=== PATIENT | female | born 1935 | race Caucasian/White ===

== ENCOUNTER 2016-12-10 05:56 | Emergency (ER) | payer OTHER, MEDICAID ==
[2016-12-10] MEDS ORDERED: NS 1,000 ML IV ONE (06:10)
[2016-12-10 06:22] LABS: % IMMATURE GRANULYOCYTES 0.6 % (0.0-1.1); ABSOLUTE IMMATURE GRANULOCYTES 0.05 10^3/uL (0.00-0.10); ADD DIFF? NO; ADD MORPH? NO; ADD SCAN? NO; ATYPICAL LYMPHOCYTE FLAG 0 (0-99); FRAGMENT RBC FLAG 0 (0-99); HEMATOCRIT 38.2 % (38.0-47.0); HEMOGLOBIN 12.8 g/dL (12.6-16.3); LEFT SHIFT FLG 0 (0-99); LIPEMIA HEMOLYSIS FLAG 80 (0-99); MEAN CELL HEMOGLOBIN 31.4 pg (27.9-34.1); MEAN CELL HEMOGLOBIN CONCENTR. 33.5 g/dL (32.4-36.7); MEAN CELL VOLUME 93.6 fL (81.5-99.8); MEAN PLATELET VOLUME 8.9 fL (8.7-11.7); PLATELET CLUMPS FLAG 0 (0-99); PLATELET COUNT 283 10^3/uL (150-400); RED BLOOD CELL COUNT 4.08 10^6/uL (4.18-5.33); RED CELL DISTRIBUTION WIDTH 12.5 % (11.5-15.2)
[2016-12-10] MEDS ORDERED: ONDANSETRON 4 MG/2 ML VIAL IVP ONE ×2 (06:29→08:57)
[2016-12-10] MEDS ORDERED: KETOROLAC 15 MG/1 ML SDV IVP ONE (06:29)
[2016-12-10 06:32] LABS: ALANINE AMINOTRANSFERASE 28 IU/L (9-52); ALKALINE PHOSPHATASE 85 IU/L (38-126); ANION GAP 11 mEq/L (8-16); ASPARTATE AMINOTRANSFERASE 21 IU/L (14-46); BILIRUBIN,TOTAL 1.6 mg/dL (0.1-1.4); BILIRUBIN-CONJUGATED 0.3 mg/dL (0.0-0.5); BILIRUBIN-UNCONJUGATED 1.3 mg/dL (0.0-1.1); CALCIUM 9.2 mg/dL (8.5-10.4); CARBON DIOXIDE 23 mEq/l (22-31); CHLORIDE 104 mEq/L (97-110); CREATININE 0.6 mg/dL (0.6-1.0); GLOMERULAR FILTRATION RATE > 60; GLUCOSE 134 mg/dL (70-100); POTASSIUM 3.9 mEq/L (3.5-5.2); SODIUM 138 mEq/L (134-144); TOTAL PROTEIN 7.1 g/dL (6.3-8.2)
--- NOTE | 2016-12-10 06:33 | EDPHY ---
H & P Stated Complaint: abdominal pain, nausea and vomiting, back pain Source: Patient, Family Exam Limitations: No limitations - Personal History Current Tetanus/Diphtheria Vaccine: Yes Current Tetanus Diphtheria and Acellular Pertussis (TDAP): Yes Tetanus Vaccine Date: <10 YRS - Medical/Surgical History Hx Asthma: No Hx Chronic Respiratory Disease: No Hx Diabetes: No Hx Cardiac Disease: Yes Hx Renal Disease: No Hx Cirrhosis: No Hx Alcoholism: No Hx HIV/AIDS: No Hx Splenectomy or Spleen Trauma: No Other PMH: stent, high blood pressure, high cholestrol - Social History Smoking Status: Never smoked Time Seen by Provider: 12/10/16 06:10 HPI/ROS: Patient is Farsi speaking. Daughters provide interpretation per their request. HPI The patient presents with left-sided flank pain which has been present for the last 2 days and is getting progressively worse. It is somewhat improved with an icy Hot patch that her daughter applied. The pain is achy, constant, moderate in severity. It is associated with nausea and lack of appetite. She did not sleep well all night because of the pain. She has no prior history of similar. She is usually constipated and that is unchanged recently. She has not had any dysuria or hematuria. She has not had any diarrhea. She has no prior history of similar pain. She recently started walking more than usual for exercise.. REVIEW OF SYSTEMS Constitutional: No fever, no chills. Eyes: No discharge. ENT: No sore throat. Cardiovascular: No chest pain, no palpitations. Respiratory: No cough, no shortness of breath. Gastrointestinal: No abdominal pain, no vomiting. Genitourinary: No hematuria. Musculoskeletal: No back pain. Skin: No rashes. Neurological: No headache. PMHx: CAD with stents in place, hypertension, hyperlipidemia, status post cholecystectomy Soc Hx: From [place], lives with her family PHYSICAL General Appearance: Alert, uncomfortable appearing Eyes: Pupils equal and round no pallor or injection ENT, Mouth: Mucous membranes moist Respiratory: There are no retractions, lungs are clear to auscultation Cardiovascular: Regular rate and rhythm Gastrointestinal: Abdomen is soft and non-tender, no masses, bowel sounds normal Back: Left-sided flank tenderness Neurological: A&O, moves all extremities Skin: Warm and dry, no rashes Musculoskeletal: Neck is supple non tender Extremities: symmetrical, full range of motion Psychiatric: Patient is oriented X 3, there is no agitation (Nuris Benitez) Constitutional: Initial Vital Signs Temperature (C) 36.6 C 12/10/16 05:58 Heart Rate 65 12/10/16 05:58 Respiratory Rate 18 12/10/16 05:58 Blood Pressure 183/109 H 12/10/16 05:58 O2 Sat (%) 95 12/10/16 05:58 O2 Delivery Mode Room Air Allergies/Adverse Reactions: No Allergies [NKDA] Allergy (Verified 12/10/16 05:58) Home Medications: Medication Instructions Recorded Aspirin EC [Aspirin EC 81 mg (*)] 81 mg PO DAILY 01/11/15 Losartan Potassium [Cozaar 25 mg 25 mg PO BID 01/11/15 (*)] Multivitamins [Multivitamin (*)] 1 tab PO DAILY 01/11/15 Atorvastatin Calcium [Lipitor 10 10 mg PO DAILY #30 tab 01/12/15 mg (*)] Metoprolol Tartrate [Lopressor 25 12.5 mg PO BID #30 tab 01/12/15 mg (*)] Prasugrel HCl [Effient 10mg (*)] 10 mg PO DAILY #30 tab 01/12/15 Ondansetron Odt [Zofran Odt] 4 mg PO Q4PRN PRN #4 tab 12/10/16 Medical Decision Making - Diagnostics Imaging Results: Imaging Impressions Abdomen CT 12/10/16 06:28 Impression: 1. No acute findings in the abdomen or pelvis. 2. Coronary artery atherosclerosis 3. Slight increase in biliary dilatation, likely related to prior cholecystectomy. 4. Additional findings as above. Findings discussed with Dr. Nuris Benitez, on December 10, 2016 at 0733 hours. The preliminary and final reports were concordant. Chest X-Ray 12/10/16 07:35 Impression: Clear lungs. No acute process. CT scan of abdomen pelvis with IV contrast shows no acute findings, discussed with Dr. Ceja of Radiology. (Nuris Benitez) Chest x-ray interpreted by me is normal (Adonis Catherine) ED Course/Re-evaluation: 6:45am Plan for IV fluids, Zofran, Toradol for pain. I will check basic labs and order a CT scan to further evaluate her pain. 7:30 a.m. The patient has been stable, her pain and nausea are somewhat improved after receiving the above medications in addition to Phenergan. CT scan was performed and was relatively unremarkable. We are still awaiting a UA. The patient was transiently hypoxic with a sat of about 78% with improved with oxygen. She may have some obstructive sleep apnea. I will obtain a chest x- ray. the case will be signed out to the oncoming provider Dr. Catherine. (Nuris Benitez) Urinalysis is normal. Re-evaluation 8:55 a.m.--patient is dry heaving. She will be given Zofran IV Re-evaluation 9:40 a.m. patient is better and resting comfortably. (Adonis Catherine) Differential Diagnosis: This is an 81-year-old female with hypertension, CAD, hyperlipidemia who presents brought in by her daughter for left-sided flank pain which has been present for the last 2 days getting progressively worse associated with nausea and anorexia. Differential diagnosis includes ureterolithiasis, pyelonephritis, AAA, diverticulitis. (Nuris Benitez) 10:30 patient and family request to be discharged. She is feeling well. Re- examination patient is stable. Patient, family and I discussed imaging and lab results. We discussed treatment plan including criteria for return importance of follow-up further evaluation. They expressed understanding and agreement (Adonis Catherine) - Data Points Laboratory Results: Laboratory Results 12/10/16 06:15 12/10/16 06:15 12/10/16 12/10/16 12/10/16 08:12 06:15 06:15 WBC 8.03 10^3/uL 10^3/uL (3.80-9.50) RBC 4.08 10^6/uL L 10^6/uL (4.18-5.33) Hgb 12.8 g/dL g/dL (12.6-16.3) Hct 38.2 % % (38.0-47.0) MCV 93.6 fL fL (81.5-99.8) MCH 31.4 pg pg (27.9-34.1) MCHC 33.5 g/dL g/dL (32.4-36.7) RDW 12.5 % % (11.5-15.2) Plt Count 283 10^3/uL 10^3/uL (150-400) MPV 8.9 fL fL (8.7-11.7) Neut % (Auto) 74.0 % % (39.3-74.2) Lymph % (Auto) 17.8 % % (15.0-45.0) [place] % (Auto) 6.4 % % (4.5-13.0) Eos % (Auto) 0.7 % % (0.6-7.6) Baso % (Auto) 0.5 % % (0.3-1.7) Nucleat RBC Rel Count 0.0 % % (0.0-0.2) Absolute Neuts (auto) 5.94 10^3/uL 10^3/uL (1.70-6.50) Absolute Lymphs (auto) 1.43 10^3/uL 10^3/uL (1.00-3.00) Absolute Monos (auto) 0.51 10^3/uL 10^3/uL (0.30-0.80) Absolute Eos (auto) 0.06 10^3/uL 10^3/uL (0.03-0.40) Absolute Basos (auto) 0.04 10^3/uL 10^3/uL (0.02-0.10) Absolute Nucleated RBC 0.00 10^3/uL 10^3/uL (0-0.01) Immature Gran % 0.6 % % (0.0-1.1) Immature Gran # 0.05 10^3/uL 10^3/uL (0.00-0.10) Sodium 138 mEq/L mEq/L (134-144) Potassium 3.9 mEq/L mEq/L (3.5-5.2) Chloride 104 mEq/L mEq/L (97-110) Carbon Dioxide 23 mEq/l mEq/l (22-31) Anion Gap 11 mEq/L mEq/L (8-16) BUN 15 mg/dL mg/dL (7-23) Creatinine 0.6 mg/dL mg/dL (0.6-1.0) Estimated GFR > 60 Glucose 134 mg/dL H mg/dL (70-100) Calcium 9.2 mg/dL mg/dL (8.5-10.4) Total Bilirubin 1.6 mg/dL H mg/dL (0.1-1.4) Conjugated Bilirubin 0.3 mg/dL mg/dL (0.0-0.5) Unconjugated Bilirubin 1.3 mg/dL H mg/dL (0.0-1.1) AST 21 IU/L IU/L (14-46) ALT 28 IU/L IU/L (9-52) Alkaline Phosphatase 85 IU/L IU/L (38-126) Total Protein 7.1 g/dL g/dL (6.3-8.2) Albumin 4.0 g/dL g/dL (3.5-5.0) Lipase 73.0 IU/L IU/L (23-300) Urine Color PALE YELLOW Urine Appearance CLEAR Urine pH 7.0 (5.0-7.5) Ur Specific [place] 1.017 (1.002-1.030) Urine Protein NEGATIVE (NEGATIVE) Urine Ketones TRACE H (NEGATIVE) Urine Blood NEGATIVE (NEGATIVE) Urine Nitrate NEGATIVE (NEGATIVE) Urine Bilirubin NEGATIVE (NEGATIVE) Urine Urobilinogen NEGATIVE EU EU (0.2-1.0) Ur Leukocyte Esterase NEGATIVE (NEGATIVE) Urine Glucose NEGATIVE (NEGATIVE) Medications Given: Discontinued Medications Sodium Chloride (Ns) 1,000 mls @ 0 mls/hr IV ONCE ONE PRN Reason: Wide Open Stop: 12/10/16 06:11 Last Admin: 12/10/16 06:21 Dose: 1,000 mls Ketorolac Tromethamine (Toradol) 15 mg IVP EDNOW ONE Stop: 12/10/16 06:30 Last Admin: 12/10/16 06:37 Dose: 15 mg Ondansetron HCl (Zofran) 4 mg IVP EDNOW ONE Stop: 12/10/16 06:30 Last Admin: 12/10/16 06:37 Dose: 4 mg Ondansetron HCl (Zofran) 4 mg IVP EDNOW ONE Stop: 12/10/16 08:58 Last Admin: 12/10/16 09:00 Dose: 4 mg Promethazine HCl (Phenergan) 12.5 mg IVP EDNOW ONE Stop: 12/10/16 06:40 Last Admin: 12/10/16 06:44 Dose: 12.5 mg Departure - Departure Disposition: Home, Routine, Self-Care Clinical Impression: Left flank pain HTN (hypertension) Qualifiers: Hypertension type: essential hypertension Qualified Code(s): I10 - Essential ( primary) hypertension Condition: Good Instructions: Flank Pain (ED) Additional Instructions: You can take Tylenol or ibuprofen for your pain. Please return if your worse in any way. Referrals: Shanice Jesus MD [Primary Care Provider] - 1 day, if not improved Prescriptions: Ondansetron Odt [Zofran Odt] 4 mg PO Q4PRN PRN #4 tab PRN Reason: Nausea/Vomiting, Use 1st
[2016-12-10] MEDS ORDERED: PROMETHAZINE HCL 25 MG/ML INJ IVP ONE (06:39)
[2016-12-10] MEDS ORDERED: IOPAMIDOL (ISOVUE-300) 100 ML BTL ONE (06:52)
[2016-12-10 08:17] LABS: COLOR PALE YELLOW; LEUKOCYTE ESTERASE,URINE NEGATIVE (NEGATIVE); NITRITE,URINE NEGATIVE (NEGATIVE)
[2016-12-10] MEDS ORDERED: ONDANSETRON 4 MG/2 ML VIAL ONE (08:57)
[2016-12-10 10:36] VITALS: BP 168/85; PULSE 67; RESP 16
[2016-12-10 10:37] VITALS: TEMP 97.5; O2SAT 91
== END 2016-12-10 10:42 | disposition home or self-care (01) ==
DX: R10.9 Unspecified abdominal pain (principal); I10 Essential (primary) hypertension; I25.10 Atherosclerotic heart disease of native coronary artery without angina pectoris; Z79.82 Long term (current) use of aspirin; Z90.49 Acquired absence of other specified parts of digestive tract; Z95.5 Presence of coronary angioplasty implant and graft
CPT/HCPCS: 71010; 74177; 96361; 96374; 96375; 96376; 99285; J1885; J2405; J2550; Q9967

== ENCOUNTER → 2017-02-01 | Outpatient (CLI) | payer OTHER, MEDICAID | LOC: BHFA 09:15 | PROVIDERS: ATTEND Internal Medicine Cardiovascular Disease | DX: I63.9 Cerebral infarction, unspecified (principal); I10 Essential (primary) hypertension; R00.2 Palpitations ==

== ENCOUNTER 2017-05-17 13:21 | Emergency (ER) | payer OTHER, MEDICAID ==
--- NOTE | 2017-05-17 13:37 | EDPHY ---
H & P Source: Patient, Family - Personal History Tetanus Vaccine Date: <10 YRS - Medical/Surgical History Hx Asthma: No Hx Chronic Respiratory Disease: No Hx Diabetes: No Hx Cardiac Disease: Yes Hx Renal Disease: No Hx Cirrhosis: No Hx Alcoholism: No Hx HIV/AIDS: No Hx Splenectomy or Spleen Trauma: No Other PMH: stent, high blood pressure, high cholestrol - Social History Smoking Status: Never smoked <Wendy Butts - Last Filed: 05/17/17 15:00> <Christiano Modi - Last Filed: 05/17/17 17:58> HPI/ROS: CHIEF COMPLAINT: Fatigue and weakness History by patient HISTORY OF PRESENT ILLNESS: 82-year-old Farsi speaking woman with a history of coronary artery disease with stents placed 2 years ago is brought in by her daughter because of several days of generalized weakness and fatigue. She has been having more difficulty getting around than usual due to weakness and may have some shortness of breath with exertion. Patient's daughter states that her mother's oxygen has been noted to be low in the past and they were worried that that was the problem making her weak. She denies any shortness of breath currently. She denies nausea but has had intermittent epigastric pain for some time which is not necessarily exertional. Patient repeatedly points to just below her breast bone. She denies any pain currently. She denies any chest pain. She has had no fever cough. She has been eating without difficulty and well. She has been taking her medication as usual. The daughter tried to take her in to see the primary care physician but they referred her to the ER. REVIEW OF SYSTEMS: As in HPI, and all other systems reviewed and are negative but are limited due to the patient's language barrier. (Wendy Butts) - Physical Exam Exam: General Appearance: Alert, pleasant, elderly, obese. Head: normocephalic, atraumatic Eyes: Pupils equal and round, reactive to light, no pallor or injection. Mouth: Mucous membranes moist. Respiratory: Normal, effort, lungs are clear to auscultation. No wheezes, rales or rhonchi. Cardiovascular: Regular rate and rhythm. S1, S2, no murmurs, gallops or rubs appreciated Gastrointestinal: Abdomen is soft and nontender, no masses, bowel sounds normal. Back: No CVA tenderness, no bony tenderness Neurological: Awake, alert and oriented x 3, no pronator drift, moving all extremities equally Skin: Warm and dry, no rashes. Musculoskeletal: No deformities or tenderness. Extremities: full range of motion, trace bilateral edema Psychiatric: Patient has normal affect, there is no agitation. (Wendy Butts) Constitutional: Initial Vital Signs Temperature (C) 36.8 C 05/17/17 13:30 Heart Rate 85 05/17/17 13:30 Respiratory Rate 24 H 05/17/17 13:30 Blood Pressure 135/75 H 05/17/17 13:30 O2 Sat (%) 90 L 05/17/17 13:30 O2 Delivery Mode Room Air O2 (L/minute) 2 Allergies/Adverse Reactions: No Allergies [NKDA] Allergy (Verified 05/17/17 13:28) Home Medications: Medication Instructions Recorded Aspirin EC [Aspirin EC 81 mg (*)] 81 mg PO DAILY 01/11/15 Losartan Potassium [Cozaar 25 mg 25 mg PO BID 01/11/15 (*)] Atorvastatin Calcium [Lipitor 10 10 mg PO DAILY #30 tab 01/12/15 mg (*)] Medical Decision Making <Wendy Butts - Last Filed: 05/17/17 15:00> - Diagnostics Imaging: Discussed imaging studies w/ scallop cutter Radiologist <Christiano Modi - Last Filed: 05/17/17 17:58> - Diagnostics EKG Interpretation: Normal sinus rhythm at a rate 86 with multiple PVCs, normal axis and minimal change from prior EKG of January 12, 2015. Impression: No evidence of acute ischemia, abnormal EKG (Wendy Butts) Imaging Results: Imaging Impressions Chest X-Ray 05/17/17 13:37 Impression: 1. Atherosclerotic aorta and coronary stent. 2. No acute pulmonary disease. ED Course/Re-evaluation: A 82-year-old woman with a history of coronary artery disease is brought in by daughter because of 3 days of weakness in the patient complains of intermittent epigastric pain which is poorly characterized. ECG shows sinus rhythm with PVCs but no evidence of acute ischemia and is unchanged from prior. Chest x- ray shows nothing acute. Labs are unremarkable and 1st troponin is negative. BMP is also negative. Although there is no evidence of acute [place]. I was concerned about cardiac ischemia and this patient with known coronary artery disease and intermittent epigastric pain with an abnormal EKG. Patient was noted to have multiple PVCs on the monitoring manager as well as some runs of trigeminy. I discussed the case with Dr. Mosley, hospitalist rn telephonic who agrees to accept the patient in transfer for ongoing evaluation. After further discussion with her daughter the patient decided she did not want to be admitted to the hospital. However they did note that the patient just returned from [facility] 6 days ago and because of this long distance flight an elderly patient with unexplained weakness and shortness of breath and chest pain I was also concerned about pulmonary embolism. Therefore we will go ahead and do a CT angiogram to rule out pulmonary embolism. If this is negative we will repeat a troponin in 3 hours. If this is also negative then the patient may go home against the medical advice to follow up with her senior c developer as an outpatient. If this is positive we will need to keep the patient in the hospital. I discussed this plan with the patient and her daughter and they are agreeable to this. I will transfer care to Dr. Christiano Modi for final disposition pending results of these tests. (Wendy Butts) 5:55 p.m. the patient's plan was repeat troponin and if this is negative to go home. Initially she was going to be admitted but refused. Patient is currently waiting for the 2nd troponin and is angry that it is taking so long. She and her daughter going to leave before the results are back. There has been a problem in the lab and had to be couriered to [facility]. (Christiano Modi) - Data Points Laboratory Results: Laboratory Results 05/17/17 13:40 05/17/17 13:40 05/17/17 05/17/17 13:40 13:40 WBC 6.58 10^3/uL 10^3/uL (3.80-9.50) RBC 4.12 10^6/uL L 10^6/uL (4.18-5.33) Hgb 13.1 g/dL g/dL (12.6-16.3) Hct 39.4 % % (38.0-47.0) MCV 95.6 fL fL (81.5-99.8) MCH 31.8 pg pg (27.9-34.1) MCHC 33.2 g/dL g/dL (32.4-36.7) RDW 12.8 % % (11.5-15.2) Plt Count 296 10^3/uL 10^3/uL (150-400) MPV 8.7 fL fL (8.7-11.7) Neut % (Auto) 51.0 % % (39.3-74.2) Lymph % (Auto) 35.4 % % (15.0-45.0) [place] % (Auto) 10.8 % % (4.5-13.0) Eos % (Auto) 2.1 % % (0.6-7.6) Baso % (Auto) 0.5 % % (0.3-1.7) Nucleat RBC Rel Count 0.0 % % (0.0-0.2) Absolute Neuts (auto) 3.36 10^3/uL 10^3/uL (1.70-6.50) Absolute Lymphs (auto) 2.33 10^3/uL 10^3/uL (1.00-3.00) Absolute Monos (auto) 0.71 10^3/uL 10^3/uL (0.30-0.80) Absolute Eos (auto) 0.14 10^3/uL 10^3/uL (0.03-0.40) Absolute Basos (auto) 0.03 10^3/uL 10^3/uL (0.02-0.10) Absolute Nucleated RBC 0.00 10^3/uL 10^3/uL (0-0.01) Immature Gran % 0.2 % % (0.0-1.1) Immature Gran # 0.01 10^3/uL 10^3/uL (0.00-0.10) Sodium 140 mEq/L mEq/L (134-144) Potassium 4.1 mEq/L mEq/L (3.5-5.2) Chloride 104 mEq/L mEq/L (97-110) Carbon Dioxide 25 mEq/l mEq/l (22-31) Anion Gap 11 mEq/L mEq/L (8-16) BUN 18 mg/dL mg/dL (7-23) Creatinine 0.6 mg/dL mg/dL (0.6-1.0) Estimated GFR > 60 Glucose 113 mg/dL H mg/dL (70-100) Calcium 9.1 mg/dL mg/dL (8.5-10.4) Troponin I 0.014 ng/mL ng/mL (0.000-0.034) NT-Pro-B Natriuret Pep 160 pg/mL pg/mL (0-450) Departure <Wendy Butts - Last Filed: 05/17/17 15:00> <Christiano Modi - Last Filed: 05/17/17 17:58> - Departure Disposition: Against Medical Advice Clinical Impression: Weakness Chest pain Qualifiers: Chest pain type: unspecified Qualified Code(s): R07.9 - Chest pain, unspecified Condition: Fair
--- NOTE | 2017-05-17 13:39 | CPEKG ---
Heart Rate: 86 RR Interval: 698 P-R Interval: 172 QRSD Interval: 86 QT Interval: 376 QTC Interval: 450 P [place]: 15 QRS [place]: 1 T Wave [place]: 13 EKG Severity - ABNORMAL ECG - EKG Impression: SINUS RHYTHM EKG Impression: MULTIPLE VENTRICULAR PREMATURE COMPLEXES Electronically Signed By: Franky Wakefield 20-May-2017 11:07:34
[2017-05-17 13:51] LABS: PLATELET COUNT 296 10^3/uL (150-400)
--- NOTE | 2017-05-17 14:50 | CPEKG ---
Heart Rate: 66 RR Interval: 909 P-R Interval: 184 QRSD Interval: 92 QT Interval: 428 QTC Interval: 449 P [place]: 17 QRS [place]: 3 T Wave [place]: 18 EKG Severity - NORMAL ECG - EKG Impression: SINUS RHYTHM Electronically Signed By: Franky Wakefield 20-May-2017 11:07:25
[2017-05-17] MEDS ORDERED: ACETAMINOPHEN 325 MG TAB PO PRN (14:56)
[2017-05-17] MEDS ORDERED: ALBUTEROL 3 ML DEYVIAL IH PRN (14:56)
[2017-05-17] MEDS ORDERED: ONDANSETRON 4 MG/2 ML VIAL IVP PRN (14:56)
[2017-05-17] MEDS ORDERED: ONDANSETRON DISINTEGRATING 4 MG TAB PO PRN (14:56)
[2017-05-17] MEDS ORDERED: IOPAMIDOL (ISOVUE 370) 100 ML BTL IV ONE (15:02)
[2017-05-17 18:05] VITALS: BP 148/77; PULSE 61; RESP 20; TEMP 98.4; O2SAT 90
[2017-05-17] MEDS ORDERED: LOSARTAN POTASSIUM 25 MG TAB PO SCH (21:00)
[2017-05-17] MEDS ORDERED: METOPROLOL TARTRATE 25 MG TAB PO SCH (21:00)
[2017-05-18] MEDS ORDERED: ASPIRIN EC 81 MG TAB PO SCH (09:00)
[2017-05-18] MEDS ORDERED: MULTIVITAMINS 1 EACH TAB PO SCH (09:00)
[2017-05-18] MEDS ORDERED: PRASUGREL HCL 10 MG TAB PO SCH (09:00)
[2017-05-18] MEDS ORDERED: ATORVASTATIN CALCIUM 10 MG TAB PO SCH (09:00)
== END 2017-05-17 18:00 | disposition left against medical advice (07) ==
LOC: CED 13:21 → CEDHOLD 14:47 → UNDOADMOB 14:47 → CEDHOLD 14:56
DX: R53.1 Weakness (principal); R07.9 Chest pain, unspecified; I25.10 Atherosclerotic heart disease of native coronary artery without angina pectoris; I10 Essential (primary) hypertension; Z79.82 Long term (current) use of aspirin; Z95.5 Presence of coronary angioplasty implant and graft
CPT/HCPCS: 71020; 71275; 93005; 99285; Q9967; 80048-PO; 83735-PO; 83880-PO; 84484-PO; 85025-PO